=== PATIENT | male | born 1995 | race Hispanic/Latino ===

== ENCOUNTER 2025-05-15 09:32 | Observation (INO) | payer SELFPAY ==
[2025-05-15] MEDS ORDERED: Ketorolac Tromethamine 30 MG (1 mL) VIAL ONE (10:47)
[2025-05-15] MEDS ORDERED: Ondansetron PF 4 MG/2 ML Vial ONE ×2 (10:47→15:03)
[2025-05-15 10:49] LABS: #Basophils 0.08 10x3/uL (0.0-0.2); #Eosinophils Less than 0.03 10x3/uL (0.0-0.7); #Monocytes 1.05 10x3/uL (0.11-0.59); #Neutrophils 19.04 10x3/uL (1.40-6.50); %Basophils 0.4 % (0.0-1.0); %Eosinophils 0.0 % (0.0-10.0); %Lymphocytes 2.5 % (21.0-51.0); %Monocytes 5.1 % (0.0-10.0); %Neutrophils 91.5 % (42.0-75.0); Hematocrit 49.9 % (42.0-52.0); Hemoglobin 17.1 g/dL (14.0-18.0); Mean Corpuscular Hemoglobin 29.2 pg (27.0-31.0); Mean Corpuscular Volume 84.5 fL (78.0-98.0); Platelet Count 249 10x3/uL (130-400); Red Blood Cell (RBC) Count 5.92 mill/uL (4.70-6.10); White Blood Cell (WBC) Count 20.79 10x3/uL (4.8-10.8)
[2025-05-15 11:19] LABS: ALT (SGPT) 74 U/L (Less than 45); AST (SGOT) 33 U/L (11-34); Albumin 4.6 g/dL (3.1-4.5); Alkaline Phosphatase 83 U/L (40-110); Anion Gap 15 mmol/L (10-20); BUN (Urea Nitrogen) 8 mg/dL (8.9-20.6); Bilirubin, Total 1.5 mg/dL (0.3-1.2); Calc. Creatinine Clearance 0 mL/min (70-130); Calcium 9.7 mg/dL (7.8-10.44); Carbon Dioxide 25 mmol/L (22-29); Chloride 99 mmol/L (98-107); Globulin 4.2 g/dL (2.4-3.5); Glucose 123 mg/dL (70-105); Lipase 27 U/L (8-78); Potassium 3.5 mmol/L (3.5-5.1); Sodium 135 mmol/L (136-145)
[2025-05-15] MEDS ORDERED: Iopamidol-370 76% 500 ML MDV (1 ML CHARGE) ONE (12:31)
[2025-05-15] MEDS ORDERED: PROPOFOL 20 ML ONE ×2 (13:36→14:37)
[2025-05-15] MEDS ORDERED: fentaNYL PF 100 MCG/2 ML SYRINGE ONE ×2 (13:36→16:53)
[2025-05-15] MEDS ORDERED: Rocuronium Bromide 10 MG/ML (10ML VIAL) ONE (13:40)
[2025-05-15] MEDS ORDERED: Lidocaine 1% PF 5 ML VIAL ONE (13:40)
[2025-05-15] MEDS ORDERED: Bupivacaine 0.25% HCL 30 ML VIAL ONE (13:42)
[2025-05-15] MEDS ORDERED: PHENYLEPHRINE-NS 100 MCG/ML 10 ML SYRINGE ONE (14:54)
[2025-05-15] MEDS ORDERED: SUGAMMADEX SODIUM 200 MG/2 ML VIAL ONE (15:29)
[2025-05-15] MEDS: FLU (Fluarix Triv) 25-26 (6MOS UP)/PF 45 MCG/0.5 ML Syringe IM ONE (18:05)
[2025-05-15 18:43] VITALS: BMI 33.3
[2025-05-16 06:38] LABS: #Basophils 0.04 10x3/uL (0.0-0.2); #Eosinophils Less than 0.03 10x3/uL (0.0-0.7); #Monocytes 1.08 10x3/uL (0.11-0.59); #Neutrophils 12.63 10x3/uL (1.40-6.50); %Basophils 0.3 % (0.0-1.0); %Eosinophils 0.0 % (0.0-10.0); %Lymphocytes 5.9 % (21.0-51.0); %Monocytes 7.4 % (0.0-10.0); %Neutrophils 85.9 % (42.0-75.0); Hematocrit 40.6 % (42.0-52.0); Hemoglobin 13.9 g/dL (14.0-18.0); Mean Corpuscular Hemoglobin 29.4 pg (27.0-31.0); Mean Corpuscular Volume 85.8 fL (78.0-98.0); Platelet Count 183 10x3/uL (130-400); Red Blood Cell (RBC) Count 4.73 mill/uL (4.70-6.10); White Blood Cell (WBC) Count 14.69 10x3/uL (4.8-10.8)
[2025-05-16 07:10] LABS: Anion Gap 10 mmol/L (10-20); BUN (Urea Nitrogen) 11 mg/dL (8.9-20.6); Calc. Creatinine Clearance 167 mL/min (70-130); Calcium 8.5 mg/dL (7.8-10.44); Carbon Dioxide 24 mmol/L (22-29); Chloride 101 mmol/L (98-107); Glucose 102 mg/dL (70-105); Potassium 3.3 mmol/L (3.5-5.1); Sodium 132 mmol/L (136-145)
[2025-05-16] MEDS: oxyCODONE 5 MG TAB PO PRN (16:19)
[2025-05-16] MEDS: Acetaminophen 325 MG TAB PO SCH (17:45)
[2025-05-16] MEDS: Enoxaparin 40 MG (0.4 mL) SYRINGE SC SCH (19:56)
[2025-05-17 06:52] LABS: #Basophils 0.03 10x3/uL (0.0-0.2); #Eosinophils 0.09 10x3/uL (0.0-0.7); #Monocytes 1.20 10x3/uL (0.11-0.59); #Neutrophils 9.33 10x3/uL (1.40-6.50); %Basophils 0.3 % (0.0-1.0); %Eosinophils 0.8 % (0.0-10.0); %Lymphocytes 9.4 % (21.0-51.0); %Monocytes 10.1 % (0.0-10.0); %Neutrophils 78.8 % (42.0-75.0); Hematocrit 38.6 % (42.0-52.0); Hemoglobin 13.0 g/dL (14.0-18.0); Mean Corpuscular Hemoglobin 29.4 pg (27.0-31.0); Mean Corpuscular Volume 87.3 fL (78.0-98.0); Platelet Count 177 10x3/uL (130-400); Red Blood Cell (RBC) Count 4.42 mill/uL (4.70-6.10); White Blood Cell (WBC) Count 11.83 10x3/uL (4.8-10.8)
[2025-05-17 07:11] LABS: Anion Gap 13 mmol/L (10-20); BUN (Urea Nitrogen) 10 mg/dL (8.9-20.6); Calc. Creatinine Clearance 169 mL/min (70-130); Calcium 8.6 mg/dL (7.8-10.44); Carbon Dioxide 25 mmol/L (22-29); Chloride 100 mmol/L (98-107); Glucose 95 mg/dL (70-105); Potassium 3.4 mmol/L (3.5-5.1); Sodium 135 mmol/L (136-145)
[2025-05-17 21:02] VITALS: BP 132/81; TEMP 97.5
[2025-05-18 06:13] LABS: #Basophils 0.04 10x3/uL (0.0-0.2); #Eosinophils 0.16 10x3/uL (0.0-0.7); #Monocytes 1.03 10x3/uL (0.11-0.59); #Neutrophils 7.97 10x3/uL (1.40-6.50); %Basophils 0.4 % (0.0-1.0); %Eosinophils 1.5 % (0.0-10.0); %Lymphocytes 14.4 % (21.0-51.0); %Monocytes 9.5 % (0.0-10.0); %Neutrophils 73.6 % (42.0-75.0); Hematocrit 40.4 % (42.0-52.0); Hemoglobin 14.0 g/dL (14.0-18.0); Mean Corpuscular Hemoglobin 29.4 pg (27.0-31.0); Mean Corpuscular Volume 84.9 fL (78.0-98.0); Platelet Count 222 10x3/uL (130-400); Red Blood Cell (RBC) Count 4.76 mill/uL (4.70-6.10); White Blood Cell (WBC) Count 10.83 10x3/uL (4.8-10.8)
[2025-05-18 06:38] LABS: Anion Gap 13 mmol/L (10-20); BUN (Urea Nitrogen) 8 mg/dL (8.9-20.6); Calc. Creatinine Clearance 190 mL/min (70-130); Calcium 9.0 mg/dL (7.8-10.44); Carbon Dioxide 25 mmol/L (22-29); Chloride 101 mmol/L (98-107); Glucose 102 mg/dL (70-105); Potassium 3.7 mmol/L (3.5-5.1); Sodium 135 mmol/L (136-145)
== END 2025-05-18 12:10 | disposition home or self-care (01) ==
LOC: ERS 09:32 → SDC/OP 13:30 → SURG B 17:17
PROVIDERS: ADMIT Surgery Trauma Surgery; ATTEND Surgery Trauma Surgery
PROC: 0DTJ4ZZ Resection of Appendix, Percutaneous Endoscopic Approach (ICD-10-PCS; principal; 2025-05-15)
DX: K35.33 Acute appendicitis with perforation, localized peritonitis, and gangrene, with abscess (principal)
CPT/HCPCS: 36415; 74177; 80048; 80053; 83690; 85025; 88304; 96361; 96365; 96375; A4314; A4649; C1889; J0169; J0665; J1100; J1650; J1885; J2250; J2270; J2405; J2543; J2704; J7120; Q9967

== ENCOUNTER 2025-05-25 07:17 | Inpatient (IN) | payer SELFPAY ==
[2025-05-25 07:47] LABS: #Basophils 0.07 10x3/uL (0.0-0.2); #Eosinophils 0.07 10x3/uL (0.0-0.7); #Monocytes 1.38 10x3/uL (0.11-0.59); #Neutrophils 18.01 10x3/uL (1.40-6.50); %Basophils 0.3 % (0.0-1.0); %Eosinophils 0.3 % (0.0-10.0); %Lymphocytes 8.1 % (21.0-51.0); %Monocytes 6.4 % (0.0-10.0); %Neutrophils 84.1 % (42.0-75.0); Hematocrit 46.1 % (42.0-52.0); Hemoglobin 15.9 g/dL (14.0-18.0); Mean Corpuscular Hemoglobin 29.0 pg (27.0-31.0); Mean Corpuscular Volume 84.0 fL (78.0-98.0); Platelet Count 411 10x3/uL (130-400); Red Blood Cell (RBC) Count 5.49 mill/uL (4.70-6.10); White Blood Cell (WBC) Count 21.44 10x3/uL (4.8-10.8)
[2025-05-25 08:02] LABS: ALT (SGPT) 177 U/L (Less than 45); AST (SGOT) 76 U/L (11-34); Albumin 3.5 g/dL (3.1-4.5); Alkaline Phosphatase 299 U/L (40-110); Anion Gap 15 mmol/L (10-20); BUN (Urea Nitrogen) 11 mg/dL (8.9-20.6); Bilirubin, Total 1.1 mg/dL (0.3-1.2); Calc. Creatinine Clearance 0 mL/min (70-130); Calcium 9.7 mg/dL (7.8-10.44); Carbon Dioxide 25 mmol/L (22-29); Chloride 96 mmol/L (98-107); Globulin 5.6 g/dL (2.4-3.5); Glucose 108 mg/dL (70-105); Potassium 3.8 mmol/L (3.5-5.1); Sodium 132 mmol/L (136-145)
[2025-05-25] MEDS ORDERED: Dextrose 50% Abboject 50 ML SYRINGE SLOW IVP PRN (11:02)
[2025-05-25] MEDS ORDERED: Ondansetron PF 4 MG/2 ML Vial IVP PRN (11:02)
[2025-05-25] MEDS ORDERED: Glucagon 1 MG/ML KIT IM PRN (11:02)
[2025-05-25] MEDS ORDERED: Acetaminophen 325 MG TAB PO PRN (11:02)
[2025-05-25 12:01] LABS: Bacteria/HPF None Seen HPF (None Seen); CAUTI Indications for Culture Pelvic or flank pain; Glucose, Urine (Dipstick) Normal (Negative); Leukocyte Negative Leu/uL (Negative); Protein, Urine (Dipstick) Negative (Neg-Trace); RBC/HPF 0-3 HPF (0-3); WBC/HPF 0-3 HPF (0-3)
[2025-05-25 12:02] LABS: Specific Gravity, Urine Greater than 1.050 (1.002-1.036)
[2025-05-25] MEDS ORDERED: Sodium Bicarbonate 2.5 MEQ/5 ML SDV ONE (12:03)
[2025-05-25] MEDS ORDERED: Lidocaine 1% w/Epinephrine 1:100K 20 ML VIAL ONE (12:03)
[2025-05-25 12:04] LABS: Urine Culture Reflex No No
[2025-05-25 12:13] LABS: INR-International Normal Ratio 1.1; PTT 40.5 sec (22.9-36.1); Prothrombin Time 13.8 sec (12.0-14.7)
[2025-05-25] MEDS ORDERED: Iopamidol-370 76% 500 ML MDV (1 ML CHARGE) ONE (14:34)
[2025-05-25] MEDS ORDERED: Ketorolac Tromethamine 30 MG (1 mL) VIAL ONE (17:52)
[2025-05-25] MEDS: Ketorolac Tromethamine 30 MG (1 mL) VIAL IVP SCH (18:00)
[2025-05-25 18:53] VITALS: BMI 30.6
[2025-05-25] MEDS: Famotidine 20 MG TAB PO SCH (20:41)
[2025-05-25] MEDS: HYDROcodone/Acetaminophen 10/325 mg Tablet PO PRN (20:51)
[2025-05-26 00:37] LABS: ALT (SGPT) 114 U/L (Less than 45); AST (SGOT) 47 U/L (11-34); Albumin 2.5 g/dL (3.1-4.5); Alkaline Phosphatase 222 U/L (40-110); Anion Gap 14 mmol/L (10-20); BUN (Urea Nitrogen) 12 mg/dL (8.9-20.6); Bilirubin, Total 1.1 mg/dL (0.3-1.2); Calc. Creatinine Clearance 169 mL/min (70-130); Calcium 8.7 mg/dL (7.8-10.44); Carbon Dioxide 24 mmol/L (22-29); Chloride 101 mmol/L (98-107); Globulin 4.1 g/dL (2.4-3.5); Glucose 100 mg/dL (70-105); Potassium 4.0 mmol/L (3.5-5.1); Sodium 135 mmol/L (136-145)
[2025-05-26 06:02] LABS: #Basophils 0.04 10x3/uL (0.0-0.2); #Eosinophils 0.13 10x3/uL (0.0-0.7); #Monocytes 0.94 10x3/uL (0.11-0.59); #Neutrophils 8.59 10x3/uL (1.40-6.50); %Basophils 0.3 % (0.0-1.0); %Eosinophils 1.1 % (0.0-10.0); %Lymphocytes 16.4 % (21.0-51.0); %Monocytes 8.0 % (0.0-10.0); %Neutrophils 73.2 % (42.0-75.0); Hematocrit 36.2 % (42.0-52.0); Hemoglobin 12.0 g/dL (14.0-18.0); Mean Corpuscular Hemoglobin 29.1 pg (27.0-31.0); Mean Corpuscular Volume 87.7 fL (78.0-98.0); Platelet Count 341 10x3/uL (130-400); Red Blood Cell (RBC) Count 4.13 mill/uL (4.70-6.10); White Blood Cell (WBC) Count 11.74 10x3/uL (4.8-10.8)
[2025-05-26 23:35] LABS: ALT (SGPT) 124 U/L (Less than 45); AST (SGOT) 89 U/L (11-34); Albumin 2.6 g/dL (3.1-4.5); Alkaline Phosphatase 242 U/L (40-110); Anion Gap 12 mmol/L (10-20); BUN (Urea Nitrogen) 12 mg/dL (8.9-20.6); Bilirubin, Total 0.4 mg/dL (0.3-1.2); Calc. Creatinine Clearance 160 mL/min (70-130); Calcium 8.8 mg/dL (7.8-10.44); Carbon Dioxide 25 mmol/L (22-29); Chloride 105 mmol/L (98-107); Globulin 4.2 g/dL (2.4-3.5); Glucose 109 mg/dL (70-105); Potassium 4.9 mmol/L (3.5-5.1); Sodium 137 mmol/L (136-145)
[2025-05-27 04:45] LABS: #Basophils 0.05 10x3/uL (0.0-0.2); #Eosinophils 0.22 10x3/uL (0.0-0.7); #Monocytes 0.74 10x3/uL (0.11-0.59); #Neutrophils 4.61 10x3/uL (1.40-6.50); %Basophils 0.7 % (0.0-1.0); %Eosinophils 2.9 % (0.0-10.0); %Lymphocytes 24.2 % (21.0-51.0); %Monocytes 9.8 % (0.0-10.0); %Neutrophils 61.1 % (42.0-75.0); Hematocrit 37.5 % (42.0-52.0); Hemoglobin 12.7 g/dL (14.0-18.0); Mean Corpuscular Hemoglobin 29.3 pg (27.0-31.0); Mean Corpuscular Volume 86.6 fL (78.0-98.0); Platelet Count 376 10x3/uL (130-400); Red Blood Cell (RBC) Count 4.33 mill/uL (4.70-6.10); White Blood Cell (WBC) Count 7.55 10x3/uL (4.8-10.8)
[2025-05-27 09:40] LABS: ALT (SGPT) 110 U/L (Less than 45); AST (SGOT) 64 U/L (11-34); Albumin 2.5 g/dL (3.1-4.5); Alkaline Phosphatase 211 U/L (40-110); Anion Gap 12 mmol/L (10-20); BUN (Urea Nitrogen) 10 mg/dL (8.9-20.6); Bilirubin, Total 0.5 mg/dL (0.3-1.2); Calc. Creatinine Clearance 147 mL/min (70-130); Calcium 8.8 mg/dL (7.8-10.44); Carbon Dioxide 26 mmol/L (22-29); Chloride 107 mmol/L (98-107); Globulin 4.1 g/dL (2.4-3.5); Glucose 98 mg/dL (70-105); Potassium 4.5 mmol/L (3.5-5.1); Sodium 140 mmol/L (136-145)
[2025-05-27 18:05] VITALS: BP 109/72; TEMP 97.7
== END 2025-05-27 18:11 | disposition home or self-care (01) | DRG 863 ==
LOC: ERS 07:17 → ERHOLD 11:01 → T4-B 18:36
PROVIDERS: ADMIT Surgery; ATTEND Surgery
DX: T81.43XA Infection following a procedure, organ and space surgical site, initial encounter (principal); R18.8 Other ascites; Z90.49 Acquired absence of other specified parts of digestive tract; Z98.890 Other specified postprocedural states
CPT/HCPCS: 36415; 49406; 71045; 74177; 77002; 80053; 83605; 83690; 85025; 85610; 85730; 87040; 87070; 87077; 87186; 87205; 93005; 96365; 99152; 99153; C1729; C1769; J1885; J2250; J2543; J3010; J7120; Q9967